=== PATIENT | female | born 1960 | race African-American/Black ===

== ENCOUNTER 2023-10-29 09:31 | Day surgery (SDC) | payer BC, OTHER, SELFPAY ==
[2023-10-29 10:45] VITALS: BP 114/58; BP 120/58; PULSE 88; PULSE 91; O2SAT 98; O2SAT 99
[2023-10-29] MEDS: LIDOCAINE 2% JELLY 10 ML UR (10:46)
--- NOTE | 2023-10-29 10:52 | P.URON_ITS ---
Urology Surgery Operative Note Operative Note Procedure Date: 10/29/23 Time Out Performed: yes Pre-op Diagnosis: Urinary urge incontinence Post-op Diagnosis: same as pre-op Procedures performed: 1. Cystoscopy. 2. Urethral dilation with [place] sounds to 30 [place]. Anesthesia: local Primary Surgeon: Julien Polo Complications: None Estimated blood loss (mL): 0 Findings: 1. No stress incontinence. 2. No prolapse. 3. High-grade trabeculation. 4. Open diverticuli. 5. No bladder tumors or mucosal lesions. Specimens: None Drains: None Indications for Procedures: This lady has rather severe urinary urgency and urge incontinence. She has failed a few oral medications. She now presents for cystoscopy. She has signed an informed consent for this and possible urethral dilation. Detailed description of Procedure: The patient was brought to the endoscopy suite and kept on her [place] hospital bed in the supine position. Timeout was done by all parties in the room. We all agreed upon the patient's identification and the planned procedures for this patient. She was repositioned in the frog-leg position. The genitalia were sterilely prepped and draped in the usual fashion. 2% lidocaine gel was passed per urethra. I started by using [place] sounds and dilating her urethra up to 30 [place]. I then passed a flexible cystoscope per urethra and into the bladder. Careful panendoscopy revealed high-grade trabeculation and diffuse open diverticuli. No evidence of any papillary tumors or erythematous mucosal lesions was noted. The scope was retroverted upon itself and no new findings were noted. The scope was then removed. Pelvic exam revealed no evidence of any stress incontinence. No evidence of any prolapse. No evidence of atrophic vaginitis. Plan: She is strongly desirous to go forward with Botox in the bladder.
== END 2023-10-29 11:00 | disposition home or self-care (01) ==
PROVIDERS: PCP Nurse Practitioner Family; Visit Provider Urology
PROC: (CPT 52000; principal; 2023-10-29 09:40)
DX: N39.46 Mixed incontinence (principal); F41.9 Anxiety disorder, unspecified; I48.91 Unspecified atrial fibrillation; I25.10 Atherosclerotic heart disease of native coronary artery without angina pectoris; N32.89 Other specified disorders of bladder; Z79.01 Long term (current) use of anticoagulants
CPT/HCPCS: 52000